=== PATIENT | male | born 1945 | race Caucasian/White ===

== ENCOUNTER → 2018-02-20 | Outpatient (CLI) | payer OTHER ==
[~2018-02-20] MED LIST: EFFEXOR XR37.5 M1 PO; FINASTERIDE5 M1 PO; HYDROCHLOROTHIA25 M1 PO; LIPITOR20 MG PO; LISINOPRIL20 MG PO; METFORMIN ER500 MG PO; NORVASC10 MG PO; PERCOCET 325 MG1 TA7 PO; TAMSULOSIN HCL0.4 MG PO; TOPROL XL25 MG PO; TRAD5TAB1 PO; [UNRECOGNIZED DRUG - REMARK]; [UNRECOGNIZED DRUG - REMARK]
== END | disposition home or self-care (01) ==
LOC: CARD 13:11
DX: Z01.818 Encounter for other preprocedural examination (principal)

== ENCOUNTER → 2018-02-27 | Outpatient (CLI) | payer OTHER | END | disposition home or self-care (01) | LOC: LAB 11:19 | DX: D64.9 Anemia, unspecified (principal); G25.81 Restless legs syndrome; R53.83 Other fatigue ==

== ENCOUNTER 2018-03-26 05:43 | Emergency (ER) | payer OTHER ==
[~2018-03-26] VITALS: Ht 180.3 cm; Wt 103.4 kg
[~2018-03-26 05:43] MED LIST changes: -EFFEXOR XR37.5 M1 PO; -FINASTERIDE5 M1 PO; -HYDROCHLOROTHIA25 M1 PO; -LIPITOR20 MG PO; -LISINOPRIL20 MG PO; -METFORMIN ER500 MG PO; -NORVASC10 MG PO; -TAMSULOSIN HCL0.4 MG PO; -TOPROL XL25 MG PO; -TRAD5TAB1 PO
[2018-03-26] MEDS ORDERED: LIPITOR20 MG PO (05:51)
[2018-03-26] MEDS ORDERED: NORVASC10 MG PO (05:51)
[2018-03-26] MEDS ORDERED: LISINOPRIL20 MG PO (05:52)
[2018-03-26] MEDS ORDERED: HYDROCHLOROTHIA25 M1 PO (05:52)
[2018-03-26] MEDS ORDERED: METFORMIN ER500 MG PO ×2 (05:53)
[2018-03-26] MEDS ORDERED: TOPROL XL25 MG PO (05:54)
[2018-03-26] MEDS ORDERED: TAMSULOSIN HCL0.4 MG PO (05:54)
[2018-03-26] MEDS ORDERED: TRAD5TAB1 PO (05:54)
[2018-03-26] MEDS ORDERED: FINASTERIDE5 M1 PO (05:55)
[2018-03-26] MEDS ORDERED: EFFEXOR XR37.5 M1 PO (05:55)
[2018-03-26 06:33] LABS: BILIRUBIN NEGATIVE (NEGATIVE); BLOOD 2+ (NEGATIVE); CLARITY CLEAR (CLEAR); COLOR YELLOW (YELLOW); GLUCOSE NEGATIVE (NEGATIVE); KETONE NEGATIVE (NEGATIVE); LEUKO ESTERASE NEGATIVE (NEGATIVE); NITRITE NEGATIVE (NEGATIVE); SPECIFIC GRAVITY <= 1.005 (1.005-1.030); UROBILINOGEN 0.2 E.U./dl (0.2-1.0)
[2018-03-26 07:00] LABS: BACTERIA TRACE
== END 2018-03-26 07:05 | disposition home or self-care (01) ==
LOC: ED 05:43
PROVIDERS: Emergency Medicine Emergency Medical Services
DX: R33.9 Retention of urine, unspecified (principal); Z88.1 Allergy status to other antibiotic agents; Z79.899 Other long term (current) drug therapy

== ENCOUNTER 2019-01-24 16:11 | Emergency (ER) | payer OTHER ==
[~2019-01-24] VITALS: Ht 180.3 cm; Wt 99.3 kg
[~2019-01-24 16:11] MED LIST changes: +EFFEXOR XR37.5 M1 PO; +FINASTERIDE5 M1 PO; +HYDROCHLOROTHIA25 M1 PO; +LIPITOR20 MG PO; +LISINOPRIL20 MG PO; +METFORMIN ER500 MG PO; +NORVASC10 MG PO; +TAMSULOSIN HCL0.4 MG PO; +TOPROL XL25 MG PO; +TRAD5TAB1 PO
== END 2019-01-24 18:14 ==
LOC: ED 16:11
DX: S90.112A Contusion of left great toe without damage to nail, initial encounter (principal); S60.222A Contusion of left hand, initial encounter; Z88.1 Allergy status to other antibiotic agents; Z79.899 Other long term (current) drug therapy; Z79.84 Long term (current) use of oral hypoglycemic drugs; W18.39XA Other fall on same level, initial encounter; Y93.H2 Activity, gardening and landscaping; Y92.89 Other specified places as the place of occurrence of the external cause; Y99.8 Other external cause status

== ENCOUNTER 2019-08-27 12:17 | Emergency (ER) | payer OTHER ==
[~2019-08-27] VITALS: Ht 180.3 cm; Wt 107.0 kg
== END 2019-08-27 15:05 | disposition home or self-care (01) ==
LOC: ED 12:17
DX: S20.212A Contusion of left front wall of thorax, initial encounter (principal); S00.81XA Abrasion of other part of head, initial encounter; M54.2 Cervicalgia; R11.0 Nausea; E11.9 Type 2 diabetes mellitus without complications; I10 Essential (primary) hypertension; Z88.1 Allergy status to other antibiotic agents; Z88.6 Allergy status to analgesic agent; Z79.899 Other long term (current) drug therapy; W01.198A Fall on same level from slipping, tripping and stumbling with subsequent striking against other object, initial encounter; Y93.89 Activity, other specified; Y92.89 Other specified places as the place of occurrence of the external cause; Y99.8 Other external cause status

== ENCOUNTER → 2019-11-19 | Outpatient (CLI) | payer OTHER ==
[2019-11-19 12:35] LABS: BASO # 0.1 10*3/uL (0.0-0.1); EOS # 0.4 10*3/uL (0.0-0.4); EOS % 3.6 % (1.0-4.0); HEMATOCRIT 41.8 % (42.0-52.0); HEMOGLOBIN 13.6 g/dl (14.0-18.0); LYMPH # 3.8 10*3/uL (1.3-4.4); LYMPH % 31.1 % (27.0-41.0); MEAN CELL VOLUME 89.7 fl (80.0-94.0); MEAN CORPUSCULAR HGB 29.2 pg (27.0-31.0); MEAN CORPUSCULAR HGB CONC 32.5 g/dl (33.0-37.0); MEAN PLATELET VOLUME 10.4 fl (9.6-12.3); MONO # 0.7 10*3/uL (0.1-1.0); MONO % 5.9 % (3.0-9.0); NEUT % 57.9 % (47.0-73.0); PLATELET COUNT AUTOMATED 278 10*3/uL (130-400); RED BLOOD COUNT 4.66 10*6/uL (4.50-5.90); RED CELL DISTRI WIDTH 13.6 % (0-14.5); WHITE BLOOD COUNT 12.1 10*3/uL (4.8-10.8)
[2019-11-19 13:01] LABS: ALBUMIN 3.2 gm/dl (3.1-4.5); ALKALINE PHOSPHATASE 89 U/L (45-117); BUN 16 mg/dl (7-24); CHLORIDE 100 mmol/L (98-107); CREATININE 1.25 mg/dL (0.70-1.30); POTASSIUM 3.7 mmol/L (3.5-5.1); SGOT/AST 24 IU/L (3-35); SGPT/ALT 39 U/L (12-78); SODIUM 135 mmol/L (136-145); TOTAL PROTEIN 7.2 gm/dL (6.4-8.2)
[2019-11-20 09:08] LABS: PROSTATE SPECIFIC AG FREE 0.69 ng/mL; PROSTATE SPECIFIC AG, SERUM 1.9 ng/mL (0.0-4.0)
== END | disposition home or self-care (01) ==
LOC: LAB 11:32
PROVIDERS: Nurse Practitioner Family
DX: D40.0 Neoplasm of uncertain behavior of prostate (principal); R53.83 Other fatigue

== ENCOUNTER 2021-01-27 15:52 | Emergency (ER) | payer OTHER ==
[~2021-01-27] VITALS: Ht 180.3 cm; Wt 92.5 kg
[2021-01-27] MEDS ORDERED: ORPHENADRINE C100 M1 PO (21:34)
== END 2021-01-27 22:18 | disposition home or self-care (01) ==
LOC: ED 15:52
DX: M54.31 Sciatica, right side (principal); M25.551 Pain in right hip; M51.36 Other intervertebral disc degeneration, lumbar region; Z88.8 Allergy status to other drugs, medicaments and biological substances; Z88.6 Allergy status to analgesic agent; Z79.899 Other long term (current) drug therapy; Z79.84 Long term (current) use of oral hypoglycemic drugs; Z98.890 Other specified postprocedural states

== ENCOUNTER 2022-08-27 14:53 | Emergency (ER) | payer OTHER ==
[~2022-08-27] VITALS: Ht 180.3 cm; Wt 103.4 kg
[~2022-08-27 14:53] MED LIST changes: +ORPHENADRINE C100 M1 PO
== END 2022-08-27 15:37 | disposition left against medical advice (07) ==
LOC: ED 14:53
DX: J02.9 Acute pharyngitis, unspecified (principal); R42 Dizziness and giddiness; Z53.21 Procedure and treatment not carried out due to patient leaving prior to being seen by health care provider

== ENCOUNTER 2023-03-19 19:04 | Emergency (ER) | payer OTHER ==
[~2023-03-19] VITALS: Ht 177.8 cm; Wt 86.2 kg
[~2023-03-19 19:04] MED LIST changes: +CELECOXIB200 M1 PO; +CLOPIDOGREL75 MG PO; +ECOTRIN81 M1 PO; +OZEMPIC0.25 MG/01 SQ; +VITAMIN D350 MC2 PO
[2023-03-19 19:55] LABS: BASO # 0.1 10*3/uL (0.0-0.1); BASO % 0.9 % (0.0-1.0); EOS # 0.3 10*3/uL (0.0-0.4); EOS % 2.4 % (1.0-4.0); HEMATOCRIT 44.4 % (42.0-52.0); LYMPH # 2.2 10*3/uL (1.3-4.4); LYMPH % 19.3 % (27.0-41.0); MEAN CELL VOLUME 89.7 fl (80.0-94.0); MEAN CORPUSCULAR HGB 28.9 pg (27.0-31.0); MEAN CORPUSCULAR HGB CONC 32.2 g/dl (33.0-37.0); MONO # 0.6 10*3/uL (0.1-1.0); MONO % 5.2 % (3.0-9.0); NEUT # 8.1 10*3/uL (2.3-7.9); NEUT % 71.8 % (47.0-73.0); PLATELET COUNT AUTOMATED 261 10*3/uL (130-400); RED BLOOD COUNT 4.95 10*6/uL (4.50-5.90); RED CELL DISTRI WIDTH 13.3 % (0-14.5); WHITE BLOOD COUNT 11.3 10*3/uL (4.8-10.8)
[2023-03-19 20:17] LABS: ALKALINE PHOSPHATASE 88 U/L (46-116); BUN 14 mg/dl (9-23); CHLORIDE 100 mmol/L (98-107); POTASSIUM 4.1 mmol/L (3.4-5.1); SGPT/ALT 17 U/L (10-49); TOTAL PROTEIN 7.4 gm/dL (6.0-8.0)
[2023-03-19] MEDS ORDERED: NAPROSYN500 MG PO (20:59)
== END 2023-03-19 21:11 | disposition home or self-care (01) ==
LOC: ED 19:04
PROVIDERS: Nurse Practitioner Family
DX: M25.551 Pain in right hip (principal); M25.561 Pain in right knee; I10 Essential (primary) hypertension; E11.9 Type 2 diabetes mellitus without complications; Z88.6 Allergy status to analgesic agent; Z88.1 Allergy status to other antibiotic agents; Z88.5 Allergy status to narcotic agent; Z88.8 Allergy status to other drugs, medicaments and biological substances; Z90.89 Acquired absence of other organs; Z98.890 Other specified postprocedural states

== ENCOUNTER 2023-03-29 17:03 | Emergency (ER) | payer OTHER ==
[~2023-03-29] VITALS: Ht 182.8 cm; Wt 99.8 kg
[~2023-03-29 17:03] MED LIST changes: +NAPROSYN500 MG PO
[2023-03-29] MEDS ORDERED: IBU800 M2 PO (19:58)
== END 2023-03-29 20:15 | disposition home or self-care (01) ==
LOC: ED 17:03
DX: M16.11 Unilateral primary osteoarthritis, right hip (principal); M17.11 Unilateral primary osteoarthritis, right knee; Z88.6 Allergy status to analgesic agent; Z88.1 Allergy status to other antibiotic agents; Z79.899 Other long term (current) drug therapy; Z79.82 Long term (current) use of aspirin; Z90.89 Acquired absence of other organs; Z98.890 Other specified postprocedural states

== ENCOUNTER 2024-03-24 13:08 | Inpatient (IN) | payer OTHER ==
[~2024-03-24] VITALS: Ht 180.3 cm; Wt 90.7 kg
[2024-03-24] VITALS (7 sets, daily range): BP systolic 162–198; BP diastolic 65–84
[~2024-03-24 13:08] MED LIST changes: +IBU800 M2 PO
[2024-03-24] MEDS ORDERED: ACETAMINOPHEN 325 MG TAB PO ONE (13:30)
[2024-03-24 13:37] LABS: BASO # 0.1 10*3/uL (0.0-0.1); BASO % 0.6 % (0.0-1.0); EOS # 0.1 10*3/uL (0.0-0.4); EOS % 0.6 % (1.0-4.0); LYMPH # 1.6 10*3/uL (1.3-4.4); MEAN CORPUSCULAR HGB 29.7 pg (27.0-31.0); MEAN PLATELET VOLUME 9.6 fl (9.6-12.3); MONO # 0.9 10*3/uL (0.1-1.0); MONO % 6.4 % (3.0-9.0); NEUT # 11.7 10*3/uL (2.3-7.9); NEUT % 81.1 % (47.0-73.0); PLATELET COUNT AUTOMATED 218 10*3/uL (130-400); RED BLOOD COUNT 4.78 10*6/uL (4.50-5.90); RED CELL DISTRI WIDTH 13.4 % (0-14.5); WHITE BLOOD COUNT 14.4 10*3/uL (4.8-10.8)
[2024-03-24 13:58] LABS: BUN 15 mg/dl (9-23); CHLORIDE 104 mmol/L (98-107); CPK 593 U/L (34-171); POTASSIUM 3.8 mmol/L (3.4-5.1)
[2024-03-24] MEDS ORDERED: SODIUM CHLORIDE 0.9% 1,000 ML IV ONE (14:10)
[2024-03-24] MEDS ORDERED: VENLAFAXINE75 M1 PO (14:44)
[2024-03-24] MEDS ORDERED: TERBINAFINE250 MG PO (14:44)
[2024-03-24] MEDS ORDERED: Glimepiride1 MG PO (14:45)
[2024-03-24] MEDS ORDERED: LISINOPRIL40 MG PO (14:45)
[2024-03-24] MEDS ORDERED: JARDIANCE10 MG PO (14:45)
[2024-03-24] MEDS ORDERED: LIPITOR20 MG PO (14:45)
[2024-03-24] MEDS ORDERED: GLUMETZA1000 MG PO (14:46)
[2024-03-24 15:36] LABS: BILIRUBIN Negative (Negative); BLOOD 3+ (Negative); CLARITY Clear (Clear); COLOR Yellow (Yellow); GLUCOSE 3+ (Negative); KETONE Trace (Negative); LEUKO ESTERASE Negative (Negative); NITRITE Negative (Negative); SPECIFIC GRAVITY 1.025 (1.001-1.030)
[2024-03-24 15:48] LABS: MUCOUS TRACE; RBC 41-50 rbc/hpf (0-2)
[2024-03-24] MEDS ORDERED: ACETAMINOPHEN 325 MG TAB PO PRN (16:40)
[2024-03-24] MEDS ORDERED: Ondansetron Hydrochloride 4 MG/2 ML VIAL IV PRN (16:40)
[2024-03-24] MEDS ORDERED: DEXTROSE 10 % IN WATER 250 ML IV PRN (16:40)
[2024-03-24] MEDS ORDERED: ACETAMINOPHEN 650 MG SUPP R PRN (16:40)
[2024-03-24] MEDS ORDERED: BISACODYL 5 MG TAB PO PRN (16:40)
[2024-03-24] MEDS ORDERED: Magnesium Hydroxide 30 ML UDC PO PRN (16:40)
[2024-03-24] MEDS ORDERED: SODIUM CHLORIDE 0.9% 1,000 ML IV SCH (16:45)
[2024-03-24] MEDS ORDERED: LISINOPRIL 20 MG TAB PO SCH (16:55)
[2024-03-24] MEDS ORDERED: IOHEXOL 300 MG/ML 100 ML VIAL IV ONE (17:25)
[2024-03-24] MEDS ORDERED: hydrALAZINE hydrochloride 20 MG/ML VIAL IV ONE (17:50)
[2024-03-24] MEDS ORDERED: SODIUM CHLORIDE 0.9% 100 ML IV ONE (19:27)
[2024-03-24] MEDS ORDERED: IOHEXOL 350 MG/ML 100 ML VIAL IV ONE ×2 (19:28→20:20)
[2024-03-24] MEDS ORDERED: SODIUM CHLORIDE 0.9% 100 ML BAG IV ONE (20:20)
[2024-03-24] MEDS ORDERED: INSULIN LISPRO 1 UNIT/0.01 ML SQ SCH (22:00)
[2024-03-25] VITALS (15 sets, daily range): BP systolic 100–218; BP diastolic 53–94
[2024-03-25] MEDS ORDERED: TRIAMCINOLONE430 GM T (00:25)
[2024-03-25] MEDS ORDERED: cloNIDine Hydrochloride 0.1 MG TAB PO ONE (06:30)
[2024-03-25 06:44] LABS: BASO # 0.1 10*3/uL (0.0-0.1); BASO % 0.7 % (0.0-1.0); EOS # 0.3 10*3/uL (0.0-0.4); EOS % 2.6 % (1.0-4.0); HEMATOCRIT 43.2 % (42.0-52.0); LYMPH % 24.5 % (27.0-41.0); MEAN CELL VOLUME 91.5 fl (80.0-94.0); MEAN CORPUSCULAR HGB CONC 31.7 g/dl (33.0-37.0); MEAN PLATELET VOLUME 9.8 fl (9.6-12.3); MONO # 0.9 10*3/uL (0.1-1.0); MONO % 7.6 % (3.0-9.0); NEUT # 7.8 10*3/uL (2.3-7.9); NEUT % 64.2 % (47.0-73.0); PLATELET COUNT AUTOMATED 199 10*3/uL (130-400); RED BLOOD COUNT 4.72 10*6/uL (4.50-5.90); RED CELL DISTRI WIDTH 13.5 % (0-14.5); WHITE BLOOD COUNT 12.2 10*3/uL (4.8-10.8)
[2024-03-25 07:15] LABS: ALKALINE PHOSPHATASE 72 U/L (46-116); BUN 12 mg/dl (9-23); CHLORIDE 107 mmol/L (98-107); CHOLESTEROL 190 mg/dL (<200); LDL CHOLESTEROL 132 mg/dL (9-159); POTASSIUM 3.6 mmol/L (3.4-5.1); SGPT/ALT 14 U/L (5-49); TOTAL PROTEIN 6.3 gm/dL (6.0-8.0); TRIGLYCERIDES 91 mg/dl (<150)
[2024-03-25 07:48] LABS: VITAMIN D, 25-HYDROXY 34.7 ng/mL (30-100)
[2024-03-25] MEDS ORDERED: hydrALAZINE hydrochloride 20 MG/ML VIAL IV ONE (07:50)
[2024-03-25] MEDS ORDERED: ATORVASTATIN CALCIUM 80 MG TAB PO SCH (13:25)
[2024-03-25] MEDS ORDERED: Clopidogrel Hydrogen Sulfate 75 MG TAB PO SCH (13:25)
[2024-03-25] MEDS ORDERED: PERFLUTREN PROTEIN-A MICROSPHR 3 ML VIAL IV ONE (15:59)
[2024-03-25] MEDS ORDERED: HEEL PROTECTOR DEVICE ONE (17:01)
[2024-03-25] MEDS ORDERED: FOAM BANDAGE HEEL T ONE (17:01)
[2024-03-25] MEDS ORDERED: FOAM BANDAGE 5X5 T ONE (19:21)
[2024-03-26] VITALS (8 sets, daily range): BP systolic 157–210; BP diastolic 65–100
[2024-03-26] MEDS ORDERED: cloNIDine Hydrochloride 0.1 MG TAB PO ONE (00:10)
[2024-03-26] MEDS ORDERED: FOAM BANDAGE 5X5 T ONE (02:47)
[2024-03-26 06:50] LABS: BASO # 0.1 10*3/uL (0.0-0.1); BASO % 0.8 % (0.0-1.0); EOS # 0.4 10*3/uL (0.0-0.4); EOS % 3.2 % (1.0-4.0); HEMATOCRIT 38.8 % (42.0-52.0); LYMPH # 2.9 10*3/uL (1.3-4.4); LYMPH % 24.1 % (27.0-41.0); MEAN CELL VOLUME 90.2 fl (80.0-94.0); MEAN CORPUSCULAR HGB 29.8 pg (27.0-31.0); MONO % 8.1 % (3.0-9.0); NEUT # 7.6 10*3/uL (2.3-7.9); NEUT % 63.3 % (47.0-73.0); PLATELET COUNT AUTOMATED 193 10*3/uL (130-400); RED CELL DISTRI WIDTH 13.9 % (0-14.5)
[2024-03-26] MEDS ORDERED: hydrALAZINE hydrochloride 20 MG/ML VIAL IV ONE (07:55)
[2024-03-26] MEDS ORDERED: LISINOPRIL 20 MG TAB PO ONE (09:10)
[2024-03-26] MEDS ORDERED: amLODIPine besylate 5 MG TAB PO SCH (10:00)
[2024-03-26] MEDS ORDERED: BARIUM SULFATE 98% 340 GM BOT PO ONE ×2 (12:30→13:33)
[2024-03-26] MEDS ORDERED: BARIUM SULFATE TABLET 700 MG PO ONE ×2 (12:55→13:33)
[2024-03-26] MEDS ORDERED: METOPROLOL SUCCINATE XR 50 MG TAB PO SCH (13:45)
[2024-03-27] VITALS (7 sets, daily range): BP systolic 165–196; BP diastolic 67–77
[2024-03-27] MEDS ORDERED: cloNIDine Hydrochloride 0.1 MG TAB PO ONE (01:35)
[2024-03-27 06:00] LABS: BASO # 0.1 10*3/uL (0.0-0.1); BASO % 0.8 % (0.0-1.0); EOS # 0.4 10*3/uL (0.0-0.4); HEMATOCRIT 39.4 % (42.0-52.0); LYMPH % 25.3 % (27.0-41.0); MEAN CELL VOLUME 90.6 fl (80.0-94.0); MEAN CORPUSCULAR HGB 29.4 pg (27.0-31.0); MEAN CORPUSCULAR HGB CONC 32.5 g/dl (33.0-37.0); MEAN PLATELET VOLUME 9.8 fl (9.6-12.3); MONO # 0.9 10*3/uL (0.1-1.0); MONO % 7.9 % (3.0-9.0); NEUT # 7.4 10*3/uL (2.3-7.9); NEUT % 62.5 % (47.0-73.0); PLATELET COUNT AUTOMATED 202 10*3/uL (130-400); RED BLOOD COUNT 4.35 10*6/uL (4.50-5.90); RED CELL DISTRI WIDTH 13.6 % (0-14.5); WHITE BLOOD COUNT 11.8 10*3/uL (4.8-10.8)
[2024-03-27] MEDS ORDERED: Enoxaparin Sodium 40 MG/0.4 ML SYR SC SCH (10:00)
[2024-03-27] MEDS ORDERED: LISINOPRIL 40 MG TAB PO SCH (10:00)
[2024-03-27] MEDS ORDERED: FOAM BANDAGE 5X5 T ONE (17:37)
[2024-03-27] MEDS ORDERED: hydrALAZINE hydrochloride 10 MG TAB PO SCH (18:00)
[2024-03-28] VITALS (11 sets, daily range): BP systolic 164–250; BP diastolic 66–100
[2024-03-28] MEDS ORDERED: hydrALAZINE hydrochloride 20 MG/ML VIAL IV ONE ×2 (00:05→20:35)
[2024-03-28 06:06] LABS: BASO # 0.1 10*3/uL (0.0-0.1); BASO % 0.6 % (0.0-1.0); EOS # 0.3 10*3/uL (0.0-0.4); EOS % 2.3 % (1.0-4.0); HEMATOCRIT 41.1 % (42.0-52.0); LYMPH # 3.2 10*3/uL (1.3-4.4); LYMPH % 25.7 % (27.0-41.0); MEAN CELL VOLUME 90.3 fl (80.0-94.0); MEAN CORPUSCULAR HGB 29.7 pg (27.0-31.0); MEAN CORPUSCULAR HGB CONC 32.8 g/dl (33.0-37.0); MEAN PLATELET VOLUME 10.2 fl (9.6-12.3); MONO # 1.2 10*3/uL (0.1-1.0); MONO % 9.4 % (3.0-9.0); NEUT # 7.6 10*3/uL (2.3-7.9); NEUT % 61.6 % (47.0-73.0); PLATELET COUNT AUTOMATED 243 10*3/uL (130-400); RED BLOOD COUNT 4.55 10*6/uL (4.50-5.90); RED CELL DISTRI WIDTH 13.7 % (0-14.5); WHITE BLOOD COUNT 12.4 10*3/uL (4.8-10.8)
[2024-03-28] MEDS ORDERED: cloNIDine Hydrochloride 0.1 MG TAB PO ONE (13:20)
[2024-03-28] MEDS ORDERED: hydrALAZINE hydrochloride 25 MG TAB PO SCH (18:00)
[2024-03-28] MEDS ORDERED: hydrALAZINE hydrochloride 50 MG TAB PO SCH (18:00)
[2024-03-29] VITALS (16 sets, daily range): BP systolic 133–240; BP diastolic 60–105
[2024-03-29 06:41] LABS: BASO % 0.2 % (0.0-1.0); HEMATOCRIT 47.3 % (42.0-52.0); LYMPH # 0.9 10*3/uL (1.3-4.4); LYMPH % 4.6 % (27.0-41.0); MEAN CELL VOLUME 87.4 fl (80.0-94.0); MEAN CORPUSCULAR HGB 29.9 pg (27.0-31.0); MEAN CORPUSCULAR HGB CONC 34.2 g/dl (33.0-37.0); MEAN PLATELET VOLUME 10.3 fl (9.6-12.3); NEUT # 18.3 10*3/uL (2.3-7.9); NEUT % 89.7 % (47.0-73.0); PLATELET COUNT AUTOMATED 299 10*3/uL (130-400); RED BLOOD COUNT 5.41 10*6/uL (4.50-5.90); RED CELL DISTRI WIDTH 13.5 % (0-14.5); WHITE BLOOD COUNT 20.4 10*3/uL (4.8-10.8)
[2024-03-29 07:03] LABS: POTASSIUM 4.7 mmol/L (3.4-5.1)
[2024-03-29] MEDS ORDERED: SODIUM CHLORIDE 0.9% 1,000 ML IV ONE (08:20)
[2024-03-29] MEDS ORDERED: hydrALAZINE hydrochloride 20 MG/ML VIAL IV ONE (08:25)
[2024-03-29] MEDS ORDERED: amLODIPine besylate 5 MG TAB PO SCH (10:00)
[2024-03-29] MEDS ORDERED: Albuterol Sulf/Ipratropium 3 ML VIAL NEB SCH (10:35)
[2024-03-29] MEDS ORDERED: Midazolam Hydrochloride 5 MG/5 ML VIAL IV PRN (10:35)
[2024-03-29] MEDS ORDERED: PROPOFOL 50 ML IV ONE ×2 (10:35→10:45)
[2024-03-29 10:48] LABS: ABG BASE EXCESS -5.4 mmol/L (-2.0-2.0); ARTERIAL BLOOD GAS PH 7.353 (7.35-7.45)
[2024-03-29] MEDS ORDERED: HYDRALAZINE HYD50 MG PO (12:29)
[2024-03-29] MEDS ORDERED: AMLODIPINE BESYL5 MG PO (12:29)
[2024-03-29] MEDS ORDERED: METOPROLOL SUCC50 M1 PO (12:29)
[2024-03-29] MEDS ORDERED: Ketamine Hydrochloride 500 MG/10 ML VIAL IV ONE (18:13)
[2024-03-29] MEDS ORDERED: ETOMIDATE 20 MG/10 ML VIAL IV ONE (18:13)
[2024-03-29] MEDS ORDERED: ROCURONIUM BROMIDE 50 MG/5 ML SYRINGE IV ONE (18:13)
[2024-03-29] MEDS ORDERED: Succinylcholine Chloride 200 MG/10 ML SYRINGE IV ONE (18:13)
[2024-03-30] MEDS ORDERED: Pantoprazole Sodium 40 MG VIAL IV SCH (10:00)
== END 2024-03-29 13:29 | disposition short-term general hospital (02) | DRG 64 ==
LOC: ED 13:08 → 4E 16:11 → EDHOLD 16:11 → 4E 03-25 14:58 → ICCU 03-29 10:08
PROVIDERS: Physician Assistant Medical; Student in an Organized Health Care Education/Training Program; ADMIT Internal Medicine; ATTEND Internal Medicine
PROC: BD15YZZ Fluoroscopy of Upper GI using Other Contrast (ICD-10-PCS; principal; 2024-03-26)
PROC: 5A1935Z Respiratory Ventilation, Less than 24 Consecutive Hours (ICD-10-PCS; 2024-03-29)
PROC: 0BH17EZ Insertion of Endotracheal Airway into Trachea, Via Natural or Artificial Opening (ICD-10-PCS; 2024-03-29)
DX: I63.522 Cerebral infarction due to unspecified occlusion or stenosis of left anterior cerebral artery (principal); G93.41 Metabolic encephalopathy; N17.0 Acute kidney failure with tubular necrosis; G45.9 Transient cerebral ischemic attack, unspecified; I16.0 Hypertensive urgency; Z96.612 Presence of left artificial shoulder joint; R31.9 Hematuria, unspecified; D72.829 Elevated white blood cell count, unspecified; M51.36 Other intervertebral disc degeneration, lumbar region; R33.9 Retention of urine, unspecified; R94.31 Abnormal electrocardiogram [ECG] [EKG]; N40.1 Benign prostatic hyperplasia with lower urinary tract symptoms; E55.9 Vitamin D deficiency, unspecified; E11.65 Type 2 diabetes mellitus with hyperglycemia; I49.3 Ventricular premature depolarization; S51.002A Unspecified open wound of left elbow, initial encounter; S51.001A Unspecified open wound of right elbow, initial encounter; D64.9 Anemia, unspecified; I35.0 Nonrheumatic aortic (valve) stenosis; W18.39XA Other fall on same level, initial encounter; I45.10 Unspecified right bundle-branch block; I44.4 Left anterior fascicular block; R29.725 NIHSS score 25; Z88.6 Allergy status to analgesic agent; Z88.1 Allergy status to other antibiotic agents; Z88.8 Allergy status to other drugs, medicaments and biological substances; Z83.3 Family history of diabetes mellitus; Z82.3 Family history of stroke; Y93.89 Activity, other specified; Y92.89 Other specified places as the place of occurrence of the external cause; Y99.8 Other external cause status